=== PATIENT | male | born 1990 | race Caucasian/White ===

== ENCOUNTER 2021-11-21 12:36 | Emergency (ER) | payer MEDICARE, OTHER ==
[2021-11-21 12:44] VITALS: BP 138/82; PULSE 108; RESP 18; TEMP 98.1
--- NOTE | 2021-11-21 13:49 | ED ---
General Adult HPI - General Chief complaint: Psychiatric Symptoms Stated complaint: Mental health eval Time Seen by Provider: 11/21/21 12:52 Source: patient Mode of arrival: ambulatory Limitations: no limitations - History of Present Illness Initial comments: 31-year-old male presents to the emergency room for a chief complaint of delusional thinking. Patient states that he has been noticing certain things that are making him feel uneasy. States that he has noticed that the patterns of his friend's tech staying him have changed. States they are techs taking him words that are not true words. States that he also has had the same dream the past 4 nights of a black figure putting a towel over his face that makes him pass out right away. Patient states he now feels like his house is being invaded because of this and is keeping all the doors and windows locked. Patient is petitioned. Patient has no other complaints at this time including sh ortness of breath, chest pain, abdominal pain, nausea or vomiting, headache, or visual changes. - Related Data Home Medications Medication Instructions Recorded Confirmed Divalproex Sodium [Divalproex 1,000 mg PO HS 11/21/21 11/21/21 Sodium ER] Gabapentin 800 mg PO HS 11/21/21 11/21/21 QUEtiapine [SEROquel] 800 mg PO HS 11/21/21 11/21/21 Sertraline [Zoloft] 50 mg PO HS 11/21/21 11/21/21 risperiDONE [RisperDAL] 1 mg PO HS 11/21/21 11/21/21 Allergies Allergy/AdvReac Type Severity Reaction Status Date / Time No Known Allergies Allergy Verified 11/21/21 14:44 Review of Systems ROS Statement: Those systems with pertinent positive or pertinent negative responses have been documented in the HPI. ROS Other: All systems not noted in ROS Statement are negative. Past Medical History Past Medical History: No Reported History History of Any Multi-Drug Resistant Organisms: None Reported Past Surgical History: Unable to Obtain Past Psychological History: Anxiety, Bipolar, Depression, Schizophrenia Smoking Status: Current every day smoker Past Alcohol Use History: None Reported Past Drug Use History: Marijuana General Exam Limitations: no limitations General appearance: alert, in no apparent distress Head exam: Present: atraumatic Eye exam: Present: normal appearance, PERRL, EOMI. Absent: scleral icterus, conjunctival injection ENT exam: Present: normal exam, mucous membranes moist Neck exam: Present: normal inspection, full ROM. Absent: tenderness Respiratory exam: Present: normal lung sounds bilaterally. Absent: respiratory distress, wheezes Cardiovascular Exam: Present: regular rate, normal rhythm, normal heart sounds GI/Abdominal exam: Present: soft, normal bowel sounds. Absent: distended, tenderness Neurological exam: Present: alert Psychiatric exam: Present: normal affect, normal mood, other (tangential thoughts) Course Vital Signs 11/21/21 12:37 Temperature 98.1 F Pulse Rate 108 H Respiratory 18 Rate Blood Pressure 138/82 O2 Sat by Pulse 99 Oximetry Medical Decision Making - Medical Decision Making Patient was evaluated by EPS, will be admitted to the psychiatric unit. Patient is signing himself in. Disposition Clinical Impression: Schizophrenia, Acute psychosis Disposition: TRANSFER TO PSYCH HOSP/UNIT Is patient prescribed a controlled substance at d/c from ED?: No Referrals: Amilcar Baltazar MD [Primary Care Provider] - 1-2 days Time of Disposition: 15:47
[2021-11-21 15:56] LABS: Amphetamine Screen,Urine Not Detected (NotDetected); Barbiturate Screen,Urine Not Detected (NotDetected); Benzodiazepines Screen,Urine Not Detected (NotDetected); Cocaine Screen,Urine Not Detected (NotDetected); Methadone Screen, Urine Not Detected (NotDetected); Opiate Screen,Urine Not Detected (NotDetected); Oxycodone Screen, Urine Not Detected (NotDetected); Phencyclidine Screen,Urine Not Detected (NotDetected); Tricyclic Antidepressant,Urine Not Detected (NotDetected); Urn Cannabinoid Scrn Detected (NotDetected)
== END 2021-11-21 20:08 ==
LOC: EC 12:36
DX: F23 Brief psychotic disorder (principal); F31.9 Bipolar disorder, unspecified; F41.9 Anxiety disorder, unspecified; F17.200 Nicotine dependence, unspecified, uncomplicated; F12.90 Cannabis use, unspecified, uncomplicated; Z79.899 Other long term (current) drug therapy
CPT/HCPCS: 80306; 82075; 87635; 99285